=== PATIENT | female | born 1945 | race Caucasian/White ===

== ENCOUNTER 2016-06-01 11:48 | Emergency (ER) | payer BC ==
[2016-06-01 12:51] VITALS: BP 129/82; PULSE 91; RESP 16; TEMP 98.8; O2SAT 92
[2016-06-01] MEDS ORDERED: CARBAMIDE PEROXIDE 15 ML BOTTLE RTEAR ONE (13:41)
--- NOTE | 2016-06-01 13:45 | UCPHY ---
[id number]/03/17 13:05 HPI/ROS: CHIEF COMPLAINT: right ear complaint HISTORY OF PRESENT ILLNESS: 71-year-old female presents with a sore on her external right ear that she noticed 3 days ago. Patient reports she woke up, felt like her ear was sore, stuck her finger in her ear and picked a scab off. Patient has been placing antibiotic ointment on this ear. She is concerned, her dogs have lice right now, her butt told her that this was not transferrable to humans. She has no other complaints, no fevers or chills, no rash, she reports the inside of her right ear is sore. (Chanel Appiah) Physical Exam: GEN: Awake, alert, oriented, no acute distress RESP: nl resp effort MSK: Normal appearing SKIN: right ear small 4 mm x 4 mm erythematous, mildly raised area on right ear antihelix, no fluctuance, no drainage, swelling and erythema to external auditory canal, no drainage, TM obscured by cerumen. (Chanel Appiah) Constitutional: Initial Vital Signs Temperature (C) 37.1 C 06/01/16 12:45 Heart Rate 91 06/01/16 12:45 Respiratory Rate 16 06/01/16 12:45 Blood Pressure 129/82 H 06/01/16 12:45 O2 Sat (%) 92 06/01/16 12:45 O2 Delivery Mode Room Air Allergies/Adverse Reactions: scallops Allergy (Verified 06/01/16 12:51) Home Medications: Medication Instructions Recorded Dheeraj-Mag Tablet Chewable 06/01/16 Ciprofloxacin HCl/Dexameth 4 drops RTEAR BID #1 btl 06/01/16 [Ciprodex Otic Suspension] Multivitamin 06/01/16 Synthroid 06/01/16 Vitamin D3 06/01/16 MDM/Departure - MDM Medications Given: Discontinued Medications Carbamide Peroxide (Debrox) 5 drop RTEAR EDNOW ONE Stop: 06/01/16 13:42 Last Admin: 06/01/16 13:44 Dose: 5 drops ED Course/Re-evaluation: Urgent Care PA supervision Physician documentation: The patient was evaluated and managed by the physician entry level marketing assistant. My co- signature indicates that I have reviewed this chart and I agree with the findings and plan of care as documented. I am the secondary supervising physician. (Malvin Denton) - Depart Disposition: Home, Routine, Self-Care Clinical Impression: Ear wound Qualifiers: Encounter type: initial encounter Open wound type: unspecified open wound type Laterality: right Qualifier Code: (S01.301A) Unspecified open wound of right ear , initial encounter Otitis externa Qualifiers: Otitis externa type: unspecified type Laterality: right Chronicity: acute Qualifier Code: (H60.501) Unspecified acute noninfective otitis externa, right ear Condition: Good Instructions: Otitis Externa (ED) Additional Instructions: Warm compresses to right ear 5 times a day for 5 minutes. Use Ciprodex ear drops 4 drops in the right ear twice daily for 7 days. Return for worsening symptoms, any other questions or concerns. Prescriptions: Ciprofloxacin HCl/Dexameth [Ciprodex Otic Suspension] 4 drops RTEAR BID #1 btl Referrals: [place],. [Primary Care Provider] - As per Instructions - PQRS PQRS Measurement: marlen (Chanel Appiah)
== END 2016-06-01 15:20 | disposition home or self-care (01) ==
LOC: CED 11:48
DX: H60.501 Unspecified acute noninfective otitis externa, right ear (principal)
CPT/HCPCS: 99214-PO; G0463-PO